=== PATIENT | male | born 1965 | race Caucasian/White ===

== ENCOUNTER 2021-02-08 03:17 | Day surgery (SDC) | payer OTHER, SELFPAY ==
[2021-01-31 14:52] VITALS: BMI 30.2
[2021-02-08 08:50] VITALS: BP 136/90; PULSE 77; RESP 18; TEMP 35.9; O2SAT 100; BMI 30.1
[2021-02-08] MEDS: LACTATED RINGERS 1,000 ML 150 ML IV CONT (09:11)
--- NOTE | 2021-02-08 09:29 | WPDGICN ---
Assessment and Plan Assessment and plan (1) Encounter for screening colonoscopy: Code(s): Z12.11 - Encounter for screening for malignant neoplasm of colon Status: Acute Assessment and Plan: Patient presents for screening colonoscopy. Appears to be at average risk for colon polyps. GI Consult Note Consult date/time: 02/08/21 09:29 HPI: Ian Fournier is a 55 year old male Presents for neoplasia screening. Patient reports that his current weight appetite bowel movements are normal. Patient denies abdominal pain. He has had no blood in his stools. His family history is noncontributory. Patient desires neoplasia screening colonoscopy Review of Systems Review of Systems: All systems reviewed & are unremarkable except as noted in HPI and below PMFSH Social History Social History Smoking status: Never smoker Alcohol intake: current Drinks per week: 11 Alcohol use details: 5-6 beers 2 times per week Substance use: never Substance use type: does not use Living arrangements: with family Additional living arrangements comments: spouse Gender identity (if verbalized by the patient): Male Sexual Orientation (if Verbalized by the Patient): Straight or Heterosexual Spiritual care concerns: No Meds Home Medications and Allergies Home Medications Medication Instructions Recorded Confirmed Type sodium,potassium,mag sulfates See Rx Instructions .ROUTE 01/13/21 Rx [Suprep Bowel Prep Kit] .COMPLEX #1 ml Allergies Allergy/AdvReac Type Severity Reaction Status Date / Time No Known Allergies Allergy Verified 02/08/21 08:59 Vital Signs Vital Signs - 24 hr 02/08/21 08:50 Temperature 96.6 F L Pulse Rate 77 Respiratory Rate 18 Blood Pressure 136/90 Pulse Oximetry 100 Exam Narrative: physical exam reveals patient be alert. Vital signs stable. HEENT exam is unremarkable. Patient is anicteric. Lungs are clear to auscultation and percussion. Heart is without murmur or extra sounds. Abdominal exam bowel sounds are present soft nontender with no organomegaly. Digital external rectal exam is normal.
--- NOTE | 2021-02-08 09:39 | WPDANESEPPF ---
Anes - Initial Pre Proc Eval Procedure: Operation Date: 02/08/21 10:15 Proposed Procedures p Screening Colonoscopy - Edison Barone MD Date/Time: 02/08/21 09:39 Surgeon: Edison Barone MD Pre Op Diagnosis: neoplasm screening Patient Data Age: 55 Gender: M Height: 1.78 m Weight: 95.2 kg Last Vital Signs Temp 96.6 F L 02/08/21 08:50 Pulse 77 02/08/21 08:50 Resp 18 02/08/21 08:50 BP 136/90 02/08/21 08:50 Pulse Ox 100 02/08/21 08:50 Allergies Allergy/AdvReac Type Severity Reaction Status Date / Time No Known Allergies Allergy Verified 02/08/21 08:59 Home Medications Medication Instructions Recorded Confirmed Type sodium,potassium,mag sulfates See Rx Instructions .ROUTE 01/13/21 Rx [Suprep Bowel Prep Kit] .COMPLEX #1 ml Patient hx anesthesia problems: none Family hx anesthesia problems: none PMFSH Past Medical History Medical History (Updated 02/08/21 @ 09:39 by Amadeo Bishop MD) Gout Social History Social History Smoking status: Never smoker Alcohol intake: current Drinks per week: 11 Alcohol use details: 5-6 beers 2 times per week Substance use: never Substance use type: does not use Living arrangements: with family Additional living arrangements comments: spouse Gender identity (if verbalized by the patient): Male Sexual Orientation (if Verbalized by the Patient): Straight or Heterosexual Spiritual care concerns: No Anes - Eval Final PreProcedure Day of Procedure 02/08/21 09:39 Heart: regular rate and rhythm Lungs: clear to auscultation Airway: Mallampati scale class II Neurological: alert and oriented Last oral intake: >/= 8 hours ASA classification: II Emergent: no Anesthetic plan: proceed Anesthesia type and monitoring: general GIVS and standard monitoring Informed Consent: The patient's anesthetic plan and its attendant risks and benefits were discussed with the patient/family/POA. Questions were solicited and answers provided to the satisfaction of the patient/family/POA.
[2021-02-08 10:07] VITALS: BP 120/66; PULSE 88; RESP 18; O2SAT 100
[2021-02-08 10:17] VITALS: BP 127/93; PULSE 86; RESP 22; O2SAT 99
[2021-02-08 10:27] VITALS: BP 130/94; PULSE 85; RESP 20; O2SAT 100
== END 2021-02-08 10:37 | disposition home or self-care (01) ==
PROVIDERS: PCP Internal Medicine; Visit Provider Internal Medicine Gastroenterology
PROC: 0DJD8ZZ Inspection of Lower Intestinal Tract, Via Natural or Artificial Opening Endoscopic (ICD-10-PCS; CPT 45378; principal; 2021-02-08 10:15)
DX: Z12.11 Encounter for screening for malignant neoplasm of colon (principal); D12.5 Benign neoplasm of sigmoid colon; K63.5 Polyp of colon
CPT/HCPCS: 45385; 88305; J2001; J2704; J7120